=== PATIENT | female | born 1985 | race Caucasian/White ===

== ENCOUNTER → 2020-12-23 | Outpatient (CLI) | payer OTHER ==
[2015-11-17 10:56] VITALS: BP 135/79
[~2020-12-23] MED LIST: GADOTERATE 7.5 MMOL/15ML VIAL. IVP ONE
--- NOTE | 2020-12-23 15:08 | KCIC ---
EXAM: MRI pelvis with and without contrast. HISTORY: Uterine fibroids, abnormal uterine bleeding. TECHNIQUE: MRI of the pelvis was performed before and after the intravenous administration of 12 mL C lariscan. COMPARISON: 07/02/2020. FINDINGS: The uterus is anteverted and measures 7.3 x 4.3 x 7.1 cm. It contains multiple fibroids of varying sizes. The largest is myometrial anterolaterally on the left, measuring 3.8 x 3.1 cm. Submuco kaleb fibroids measure 13 x 12 mm at the fundus and 17 x 15 mm anteriorly along the lower uterine segme nt. A few small subserosal fibroids measure up to 11 mm. The endometrial stripe measures 10 mm. The junctional zone is not thickened at 6 mm. A dominant follicle in the left ovary measures 2.5 x 2.2 cm. A complicated small follicle on the left measures 12 mm. There are multiple small peripheral follicles in both ovaries. There is no significant free fluid. There are no pathologically enlarged lymph nodes. IMPRESSION: 1. The uterus is mildly enlarged by multiple fibroids measuring up to 3.8 x 3.1 cm on the left. 2. Correlate clinically for polycystic ovarian syndrome. Electronically signed by: Dimitrios Lincoln MD (12/23/2020 3:05 PM) [id number]
== END ==
LOC: KCIC MRI 12:47
PROVIDERS: ATTEND Nurse Practitioner Women's Health
DX: D25.9 Leiomyoma of uterus, unspecified (principal); E28.2 Polycystic ovarian syndrome; N93.9 Abnormal uterine and vaginal bleeding, unspecified
CPT/HCPCS: 72197; A9575

== ENCOUNTER → 2022-02-12 | Outpatient (CLI) | payer OTHER ==
[2015-11-17 10:56] VITALS: BP 135/79
== END ==
LOC: SPEC 15:59
PROVIDERS: ATTEND Obstetrics & Gynecology
DX: N89.8 Other specified noninflammatory disorders of vagina (principal)
CPT/HCPCS: Q0111